=== PATIENT | male | born 2000 | race Caucasian/White ===

== ENCOUNTER 2021-06-23 10:01 | Emergency (ER) | payer BC ==
[~2021-06-23] VITALS: Ht 182.9 cm; Wt 90.9 kg
[2021-06-23 10:07] VITALS: BP 127/71; TEMP 98.2
[2021-06-23 10:35] LABS: STREP SCREEN POSITIVE
[2021-06-23] MEDS ORDERED: ZITHROMAX500 M2 PO (10:45)
[2021-06-23 10:54] VITALS: PULSE 71
== END 2021-06-23 10:55 | disposition home or self-care (01) ==
LOC: COL.ER 10:01
PROVIDERS: Emergency Medicine
DX: J02.0 Streptococcal pharyngitis (principal); Z20.822 Contact with and (suspected) exposure to COVID-19; Z88.0 Allergy status to penicillin; Z88.1 Allergy status to other antibiotic agents
CPT/HCPCS: J1100